=== PATIENT | female | born 2000 | race Caucasian/White ===

== ENCOUNTER 2020-01-29 18:35 | Emergency (ER) | payer BC, SELFPAY ==
[2020-01-29 18:43] VITALS: BP 122/71; PULSE 72; RESP 16; TEMP 36.7; O2SAT 100
--- NOTE | 2020-01-29 18:43 | ED.GENADULT ---
HPI - General Adult General Chief complaint: Back Pain/Injury Stated complaint: lower back pain/nausea Time Seen by Provider: 01/29/20 18:48 Source: patient and RN notes reviewed Mode of arrival: ambulatory Limitations: no limitations History of Present Illness HPI narrative: 19-year-old female presents with concern for intermittent left flank pain, right flank pain with episodes of nausea during the pain. Reports dysuria menstrual cycle which ended 1 week ago. She denies fever, frequency, urgency. Reports she had one episode of left flank pain last night that lasted 5 minutes, tonight the episode of flank pain was bilateral and lasted 10 minutes.. Denies injury to her back, trauma, pain worsening with position changes. MD complaint: Low back pain Related Data Allergies Allergy/AdvReac Type Severity Reaction Status Date / Time No Known Allergies Allergy Verified 01/29/20 18:49 Review of Systems Review of Systems: Narrative: CONSTITUTIONAL: Denies malaise, chills, sweats, or fever. CARDIOVASCULAR: Denies chest pain, palpitations RESPIRATORY: Denies cough or dyspnea. GASTROINTESTINAL: Denies abdominal pain, vomiting, diarrhea, bloody, or mucous stools.. Reports 2 episodes of nausea GENITOURINARY: Reports dysuria, 2 episodes of flank pain. Denies frequency, urgency, or hematuria. SKIN: Denies rash or itching. MUSCULOSKELETAL: Reports bilateral low back pain. Denies joint pain, or myalgia. NEUROLOGIC: Denies numbness, weakness, or headache. All systems reviewed & are unremarkable except as noted in HPI and below PMFSH Comments At time of signature, agree with nursing past medical, surgical, social and family history. There is no relevant family history pertinent to the presenting complaint Exam Narrative: Exam Narrative: GENERAL: Well-appearing, well-nourished, and in no acute distress. HEAD: Normocephalic. EYES: PERRLA, conjunctivae clear. NECK: Supple. No lymphadenopathy CHEST: Clear to auscultation. No respiratory distress. HEART: Regular rate and rhythm. No murmur heard. Normal peripheral pulses. ABDOMEN: Soft, nontender upon palpation, nondistended, normal active bowel sounds, no palpable or pulsatile masses, no guarding. No CVA tenderness SKIN: Warm, dry, no rash. NEURO: Alert and oriented x3. PSYCH: Normal mood and affect Course Course Emergency Course: This limited diagnostic capability at the [facility]. Offered patient transfer to emergency room for further evaluation of her flank pain and to rule out potential nephrolithiasis. Discussed results of UA and treatment for potential UTI. Patient she is at this time to for potential urinary tract infection and understands reasons to go the emergency room if her symptoms worsen or do not improve. Patient is aware of diagnosis, understands and agrees to treatment plan. Anticipatory guidance given. Patient agrees to follow-up as directed and is aware of reasons to seek care at the emergency department. Portions of this record may have been created with voice recognition software Vital Signs Vital signs: Vital Signs Temperature 98.1 F 01/29/20 18:43 Pulse Rate 72 01/29/20 18:43 Respiratory Rate 16 01/29/20 18:43 Blood Pressure 122/71 01/29/20 18:43 Pulse Oximetry 100 01/29/20 18:43 Temperature 98.1 F 01/29/20 18:43 Pulse Rate 72 01/29/20 18:43 Respiratory Rate 16 01/29/20 18:43 Blood Pressure 122/71 01/29/20 18:43 Pulse Oximetry 100 01/29/20 18:43 Reviewed. Medical Decision Making MDM Narrative Medical decision making narrative: No risk factors or findings concerning for epidural abscess, diskitis, vertebral osteomyelitis, cord compression, cauda equina, vertebral fracture or bone malignancy, AAA, or pyelonephritis. Patient instructed to consider further imaging and workup through their primary care physician as an outpatient if symptoms persist. Exam findings and UA show no acute concerns or changes; patient is non-toxic andree
== END 2020-01-29 19:10 | disposition home or self-care (01) ==
PROVIDERS: Emergency Provider Nurse Practitioner
DX: R10.9 Unspecified abdominal pain (principal); R30.0 Dysuria
CPT/HCPCS: 81003; 87086; 99203; G0463

== ENCOUNTER 2020-07-13 10:21 | Emergency (ER) | payer BC, SELFPAY ==
--- NOTE | 2020-07-13 10:26 | ED.GENADULT ---
HPI - General Adult General Chief complaint: Dizziness Stated complaint: dizzy/nausea Time Seen by Provider: 07/13/20 10:28 Source: patient and RN notes reviewed Mode of arrival: ambulatory Limitations: no limitations History of Present Illness HPI narrative: 20-year-old female presents with concern for 3-day history of intermittent dizziness. Reports feeling room spinning for 3 days, particularly when she gets up from standing. Reports today she had an episode of nausea with dizziness. Reports the symptoms resolve without intervention. She denies any headache, weakness in any extremity, difficulty swallowing, speaking. Reports mild nasal congestion, ear fullness, for which she has not had intervention. Reports a history of vertigo taking meclizine. She denies fever, decreased urine output, malaise, body aches, chills, sweats, shortness of breath, cough, vomiting, diarrhea. MD complaint: Dizziness Related Data Allergies Allergy/AdvReac Type Severity Reaction Status Date / Time No Known Allergies Allergy Verified 01/29/20 18:49 Review of Systems Review of Systems: Narrative: CONSTITUTIONAL: Denies malaise, chills, sweats, or fever. EYES: Denies visual changes, redness, or discharge. ENT: Denies rhinorrhea, sinus pain, otalgia or sore throat. Reports nasal congestion and ear fullness CARDIOVASCULAR: Denies chest pain, palpitations, or edema. RESPIRATORY: Denies cough or dyspnea. GASTROINTESTINAL: Denies abdominal pain, vomiting, diarrhea. Reports nausea GENITOURINARY: Denies decreased urine frequency, dysuria or hematuria. SKIN: Denies rash or itching. MUSCULOSKELETAL: Denies myalgia. NEUROLOGIC: Denies numbness, weakness, or headache. Reports dizziness PSYCHIATRIC: Denies anxiety or depression. All systems reviewed & are unremarkable except as noted in HPI and below PMFSH Comments At time of signature, agree with nursing past medical, surgical, social and family history. There is no relevant family history pertinent to the presenting complaint Exam Narrative: Exam Narrative: GENERAL: Well-appearing, well-nourished, and in no acute distress. HEAD: Normocephalic, atraumatic. EYES: PERRLA, conjunctivae clear, and EOMI. No nystagmus. ENT: Nares clear, turbinates erythematous, clear rhinorrhea. Mucous membranes moist. TM pearly khan with sharp light reflex bilaterally; no tragal tenderness. Oropharynx without erythema or lesions. Tonsils not enlarged and without exudate. NECK: Supple. No lymphadenopathy. CHEST: No respiratory distress. Clear to auscultation. No bony deformities, no asymmetry. Speaks in full sentences. HEART: Regular rate and rhythm. No murmur heard. Normal peripheral pulses. EXTREMITIES: Normal range of motion. No edema. Normal strength and sensation. SKIN: Warm, dry, no rash. NEURO: Alert and oriented x3. No focal deficits. Cranial nerves II through XII grossly intact PSYCH: Normal mood and affect Course Course Emergency Course: Patient is aware of diagnosis, understands and agrees to treatment plan. Anticipatory guidance given. Patient agrees to follow-up as directed and is aware of reasons to seek care at the emergency department. Portions of this record may have been created with voice recognition software Vital Signs Vital signs: Vital Signs Temperature 98.0 F 07/13/20 10:27 Pulse Rate 95 07/13/20 10:27 Respiratory Rate 12 07/13/20 10:27 Blood Pressure 133/82 07/13/20 10:27 Pulse Oximetry 100 07/13/20 10:27 Temperature 98.0 F 07/13/20 10:27 Pulse Rate 95 07/13/20 10:27 Respiratory Rate 12 07/13/20 10:27 Blood Pressure 133/82 07/13/20 10:27 Pulse Oximetry 100 07/13/20 10:27 Reviewed. Medical Decision Making MDM Narrative Medical decision making narrative: Exam findings show no acute concerns or changes; patient is non-toxic appearing and is in no distress. Patient is appropriate for outpatient treatment and follow-up. Vital Signs Vital Signs: Vital Signs T
[2020-07-13 10:27] VITALS: BP 133/82; PULSE 95; RESP 12; TEMP 36.7; O2SAT 100
== END 2020-07-13 10:43 | disposition home or self-care (01) ==
PROVIDERS: Emergency Provider Nurse Practitioner
DX: R42 Dizziness and giddiness (principal)
CPT/HCPCS: 99213; G0463